=== PATIENT | male | born 1995 | race Caucasian/White ===

== ENCOUNTER 2020-05-14 13:31 | Outpatient (REF) | payer MEDICAID, SELFPAY | END 2020-05-14 13:32 | disposition home or self-care (01) | LOC: HO.LAB 13:31 | PROVIDERS: Visit Provider Internal Medicine | DX: Z20.828 Contact with and (suspected) exposure to other viral communicable diseases (principal) | CPT/HCPCS: 36415; C9803; U0003 ==

== ENCOUNTER 2020-11-03 10:06 | Emergency (ER) | payer MEDICAID, SELFPAY ==
[2020-11-03 10:18] VITALS: BP 115/74; PULSE 85; RESP 12; TEMP 37; O2SAT 100; BMI 18.6
--- NOTE | 2020-11-03 12:12 | ED_ITS ---
HPI - General Adult General Chief complaint: General Medical Stated complaint: std Time Seen by Provider: 11/03/20 11:41 Source: patient Mode of arrival: ambulatory Limitations: no limitations History of Present Illness HPI narrative: 25 y/o male presenting with pain and burning with urination x2 days. He reports unprotected sex with a woman with unknown STI status and he is concerned about a STI. He has some mild bladder discomfort at times but no abdominal pain, nausea, vomiting, penile discharge or lesions. Urine is normal color and smell. MD complaint: dysuria Onset (ago): day(s) (2) Location: genitals Radiation: non-radiation Severity: mild Quality: burning Pain Consistency: intermittent Relieving factors: none Exacerbating factors: none Associated symptoms: denies other symptoms Treatments prior to arrival: none Related Data Previous Rx's Medication Instructions Recorded doxycycline monohydrate 100 mg PO BID #14 cap 11/03/20 Allergies Allergy/AdvReac Type Severity Reaction Status Date / Time No Known Allergies Allergy Unverified 01/24/20 16:53 Review of Systems Review of Systems: Constitutional: No Fever, No Chills ENT/Mouth: No sore throat Gastrointestinal: No Nausea, No Vomiting, No Diarrhea, No abdominal Pain Genitourinary: N+ Dysuria, No Urinary Frequency, No Hematuria, No penile discharge Musculoskeletal: No joint pain, No Myalgias Skin: No Skin Lesions, No rash Heme/Lymph: , No Lymphadenopathy PMFSH Past Medical History Attestation statement: The following information was validated with the patient. Social History Social History Advance Directives: Yes Advance Directives Information Provided: Yes Advance Directives on File: No Physical Exam Vital Signs: Vital Signs: Last Vital Signs Temp 98.6 F 11/03/20 10:18 Pulse 85 11/03/20 10:18 Resp 12 11/03/20 10:18 BP 115/74 11/03/20 10:18 Pulse Ox 100 11/03/20 10:18 Body Mass Index 18.6 Const: General: cooperative, healthy appearing, comfortable and no acute distress HENMT: Head: Yes normal to inspection Ears: hearing grossly normal bilaterally General nose exam: Normal external nose present Mouth: Normal oral and palatal mucosa present, oropharynx normal and moist mucous membranes Eyes: General: appearance normal, both eyes and all related structures Chest: Chest palpation & inspection: normal inspection of the chest Resp: Effort & Inspection: normal respiratory effort and able to speak in complete sentences GI: Inspection: Yes normal to inspection Palpation (GI): Soft to palpation, not firm and nontender Auscultation: normal bowel sounds : General: Yes bladder normal to palpation and Yes no CVA tenderness Male General Exam: Yes normal external exam, No inguinal lymphadenopathy and No Genital lesions present Penis: normal penis, circumcised, no swelling and No Genital lesions present Meatus: meatus normal and no meatla discharge Scrotum: scrotum normal and testes descended bilaterally Testes: Testes normal and epididymides normal Back/Spine/Pelvis: Back: no CVA tenderness Skin: General skin exam: no rashes or lesions noted Psych: Appearance: grossly normal Mental Status: mental status grossly normal Course Course Course Narrative: 25 y/o male presenting with dysuria x2 days in setting of possible STI. UA is negative for infection. Will empirically treat for CT/NG, patient agrees. Will also send doxycycline to pharmacy given new CDC guidelines. He was encouraged to f/u at the [facility] for additional testing if concerned. Stable for d/c home. Medical Decision Making Lab Data Labs: Lab Results 11/03/20 Range/Units 11:49 Urine Color STRAW Urine Appearance CLEAR Urine pH 7.0 (5.0-8.0) Ur Specific [place] <= 1.005 (1.005-1.025) Urine Protein NEG (NEG-TRACE) MG/DL Urine Glucose (UA) NEG (NEG) MG/DL Urine Ketones NEG (NEG) MG/DL Urine Blood NEG (NEG) Urine Nitrite NEG (NEG) Ur Leukocyte Esterase NEG (NEG) Critical Care Time Critical Care Time Critical Care Time: No Discharge Plan Discharge Clinical Impression: Dysuria Patient Disposition: Home, Self-Care Instructions: Chlamydia (ED), Gonorrhea (ED), Dysuria (ED) Additional Instructions: Your urine test is negative for urinary tract infection. You are being treated for possible STD's Gonorrhea & Chlamydia - we will call you if you are positive Take the prescribed antibiotic for 1 week to complete treatment. Stay out of the sun and use sunscreen while on this antibiotic. No sexual activity until you are off of antibiotics and all of your symptoms are resolved Follow up with your doctor as needed. Prescriptions: New doxycycline monohydrate 100 mg capsule 100 mg PO BID Qty: 14 RF: 0
[2020-11-03 12:19] LABS: Glucose Urine UA NEG (NEG); Leukocyte Esterase Urine NEG (NEG); Nitrite Urine NEG (NEG); Specific Gravity - Urine <= 1.005 (1.005-1.025); Urine Blood NEG (NEG); Urine Ketones NEG (NEG); Urine Protein NEG (NEG-TRACE)
[2020-11-03 12:23] LABS: Appearance Urine CLEAR; Color Urine STRAW
[2020-11-03] MEDS: Azithromycin 500 MG TABLET 1000 MG PO (12:38)
[2020-11-03] MEDS: cefTRIAXone sodium 500 MG, Lidocaine HCl 1 % MPF 1 ML IM (12:39)
[2020-11-03 13:58] LABS: CT PCR NOT DETECTED (Not Detect.); NG PCR NOT DETECTED (Not Detect.)
== END 2020-11-03 12:52 | disposition home or self-care (01) ==
PROVIDERS: Physician Assistant; Emergency Provider Emergency Medicine Emergency Medical Services
DX: R30.0 Dysuria (principal); Z20.2 Contact with and (suspected) exposure to infections with a predominantly sexual mode of transmission
CPT/HCPCS: 81003; 87491; 87591; 96372; 99283; 99284; J0696

== ENCOUNTER 2021-03-31 15:18 | Emergency (ER) | payer MEDICAID, SELFPAY ==
--- NOTE | ~2021-03-31 | CT_ITS ---
EXAMINATION: CT HEAD WITHOUT CONTRAST CLINICAL INFORMATION: Headaches COMPARISON: CT of the head 03/18/2017 TECHNIQUE: Contiguous axial imaging was performed from the skull base to vertex without intravenous administration of contrast. This CT examination was performed using dose optimization techniques as appropriate, variously including the following: *Automated exposure control *Adjustment of mA and/or kV according to patient size (this includes techniques or standardized protocols for targeted exams where dose is matched to indication/reason for exam; i.e. extremities or head) *Use of iterative reconstruction technique DLP: 634 mGy-cm FINDINGS: There is no evidence of acute intracranial hemorrhage or territorial infarction. No abnormal mass effect or midline shift is seen. Cline to white matter differentiation is well preserved. No extra-axial fluid collections are identified. The ventricles are normal in size. There is no abnormal attenuation within the brain parenchyma. The osseous structures and soft tissues are normal. The mastoid air cells and visualized portions of the paranasal sinuses are well aerated. CT/CT head/brain wo con IMPRESSION: No acute intracranial pathology.
[2021-03-31 16:33] VITALS: BP 144/88; PULSE 69; RESP 18; TEMP 36.9; O2SAT 100; BMI 18.4
--- NOTE | 2021-03-31 16:33 | ED_ITS ---
HPI - Seizure General Chief Complaint: Seizure Stated Complaint: seizure 2 wks..head is feeling funny Time Seen by Provider: 03/31/21 16:32 Source: patient Mode of arrival: ambulatory Limitations: no limitations History of Present Illness complaint: possible seizure Onset (ago): week(s) (2) Description of Episode: loss of consciousness and tonic-clonic movement -: second(s) Witnessed: Yes - by Bystander Trauma: No Seizure History: Yes (possible) Place: Home Possible Precipitating Event: other (massage) Associated symptoms: other (?increased stress and lack of sleep ) Treatments prior to arrival: none Related Data Previous Rx's Medication Instructions Recorded doxycycline monohydrate 100 mg 100 mg PO BID #14 cap 11/03/20 capsule Allergies Allergy/AdvReac Type Severity Reaction Status Date / Time No Known Allergies Allergy Verified 03/31/21 16:32 Review of Systems Review of Systems: Constitutional : No Fever, No Chills, No Fatigue ENT/Mouth : No sore throat, No Rhinorrhea Eyes: No Eye Pain, No Swelling, No Redness Cardiovascular : No Chest Pain, No SOB, No Dyspnea on Exertion Respiratory : No Cough, No Sputum Gastrointestinal : No Nausea, No Vomiting, No Diarrhea, No abdominal Pain Genitourinary : No Dysuria, No Urinary Frequency, No Hematuria, Musculoskeletal : No joint pain, No Myalgias, No Joint Swelling Skin : No Skin Lesions, No rash Neuro : No Weakness, No Numbness, No Dizziness, positive Headache, pos possible abnormal movements Psych : No Anxiety/Panic, No Depression Heme/Lymph: No Bruising, No Bleeding,No Lymphadenopathy Endocrine : No Polyuria, No Polydipsia All other systems reviewed and are negative [facility] Past Medical History Attestation statement: The following information was validated with the patient. Medical History (Updated 03/31/21 @ 17:56 by Jocelyn De Dios DO) No known health problems Seizures Social History Social History (Updated 03/31/21 @ 16:41 by Jocelyn De Dios DO) Patient Tobacco Use Status: Never used Tobacco Substance Use Type: Marijuana Physical Exam Vital Signs: Vital Signs: Last Vital Signs Temp 98.5 F 03/31/21 16:33 Pulse 69 03/31/21 16:33 Resp 18 03/31/21 16:33 BP 144/88 H 03/31/21 16:33 Pulse Ox 100 03/31/21 16:33 Body Mass Index 18.4 Appearance: Alert. Oriented X3. No acute distress. Eyes: Pupils equal, round and reactive to light. ENT: Pharynx normal. Neck: Normal inspection. Neck supple. CVS: Normal heart rate and rhythm. Pulses normal. Respiratory: No respiratory distress. Breath sounds normal. Abdomen: Soft and nontender. Skin: Skin warm and dry. Normal skin color. Normal skin turgor. Extremities: No lower extremity edema. No calf ttp Neuro: Oriented X 3. No motor deficit. No sensory deficit. 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 Does not have a neurologist. He c/o headache since his last episode 2 weeks ago. At this time will obtain CT head to r/o mass. He saw our Neurologist in the past if he has negative head CT will refer to Neurologist Discharge Plan Discharge Clinical Impression: Generalized seizure Patient Disposition: Home, Self-Care Instructions: Recurrent Seizures in Adults (ED) Additional Instructions: return to ED for any worsening symptoms or concerns Prescriptions: No Action doxycycline monohydrate 100 mg capsule 100 mg PO BID Qty: 14 RF: 0 Referrals: Orestes Thomas MD [Physician] - 1 week Gino uDff APRN [Advanced Practice Nurse] - 2 days (any provider available) Stand Alone Forms: Work/School Release
== END 2021-03-31 18:22 | disposition home or self-care (01) ==
PROVIDERS: Emergency Provider Emergency Medicine
DX: R56.9 Unspecified convulsions (principal); F12.90 Cannabis use, unspecified, uncomplicated; F19.90 Other psychoactive substance use, unspecified, uncomplicated; Z79.899 Other long term (current) drug therapy
CPT/HCPCS: 70450; 99282; 99283; 99284

== ENCOUNTER 2025-01-23 08:12 | Emergency (ER) | payer OTHER, SELFPAY ==
[2025-01-23 08:13] VITALS: BP 138/76; PULSE 51; RESP 16; TEMP 36.6; O2SAT 98; BMI 18.7
--- NOTE | 2025-01-23 08:26 | ED_ITS ---
HPI - Male Genitourinary General Chief complaint: Urogenital-Male Stated complaint: bladder issues Time Seen by Provider: 01/23/25 08:18 Source: patient Mode of arrival: ambulatory Limitations: no limitations History of Present Illness ED Provider: HPI Narrative: 29-year-old male, denies ongoing drug use, denies possible STI exposure, has not had sexual intercourse in 4 months, has had no penile drainage, feels like he does not empty flu when he urinates and feels penile discomfort, no rashes reported. And states has had protected intercourse otherwise. Had a scare for potential STI approximately 4 years ago. Related Data Previous Rx's ?Medication ?Instructions ?Recorded doxycycline monohydrate 100 mg 100 mg PO BID #14 caps 11/03/20 capsule phenazopyridine 200 mg tablet 200 mg PO TID 6 days #18 tabs 01/23/25 (Pyridium) Allergies Allergy/AdvReac Type Severity Reaction Status Date / Time No Known Allergies Allergy Verified 01/23/25 08:16 Review of Systems Constitutional: Constitutional: Reports as per [facility] Past Medical History Medical History (Updated 01/23/25 @ 09:47 by Olu Vazquez DO) Seizures No known health problems Social History Social History (Updated 03/31/21 @ 16:41 by Luz De Dios DO) Patient Tobacco Use Status: Never used Tobacco Substance Use Type: Marijuana Advance Directives: No Advance Directives Information Provided: Yes Physical Exam Vital Signs: Vital Signs: Last Vital Signs Temp 97.8 F 01/23/25 08:13 Pulse 51 01/23/25 08:13 Resp 16 01/23/25 08:13 BP 138/76 01/23/25 08:13 Pulse Ox 98 01/23/25 08:13 O2 Del Method Room Air 01/23/25 08:13 BMI result Body Mass Index 18.7 Const: Other: Alert and oriented x4 exam; normal penis external, meatus without any bleeding, drainage, there were no rashes, testicles nontender, no masses palpated, no inguinal hernias Medical Decision Making Medical Decision Making [facility] Narrative: Screen patient for potential STI, he denies risks and states has not had any penile discharge, reassuring physical examination, we will check urinalysis to evaluate for UTI, and send of UA for GC/C Differential Diagnosis Differential Diagnoses: The differential diagnosis associated with the presentation includes (Prostatitis, STI, UTI, hernias, rashes) Lab Data Labs: Lab Results 01/23/25 Range/Units 09:19 Urine Color Yellow Urine Appearance Clear Urine pH 7.5 (5.0-9.0) Ur Specific [place] <= 1.005 (1.005-1.025) Urine Protein Negative (Neg-Trace) mg/dL Urine Glucose (UA) Negative (Negative) mg/dL Urine Ketones Negative (Negative) mg/dL Urine Blood Negative (Negative) Urine Nitrite Negative (Negative) Ur Leukocyte Esterase Negative (Negative) Discharge Plan Discharge Clinical Impression: Dysuria Patient Disposition: Home, Self-Care Instructions: Dysuria (ED) Additional Instructions: Urine culture was sent to evaluate for any sexually transmitted diseases, urinalysis without infection, in the meantime start taking Pyridium for the discomfort of the bladder, you do need to have PCP involved in your care and if you need referral to Urology for evaluation that she would be done through PCP, Pyridium can make it urine turn orange Prescriptions: New phenazopyridine [Pyridium] 200 mg tablet 200 mg PO TID 6 Days Qty: 18 0RF No Action doxycycline monohydrate 100 mg capsule 100 mg PO BID Qty: 14 0RF Rx Instructions: supervising MD Leoncio Aiken Print Language: Czech
[2025-01-23 09:30] LABS: Appearance Urine Clear; Glucose Urine UA Negative (Negative); PH 7.5 (5.0-9.0); Specific Gravity - Urine <= 1.005 (1.005-1.025)
[2025-01-23 10:01] VITALS: BP 118/74; PULSE 55; RESP 16; TEMP 35.9; O2SAT 100
[2025-01-23 10:58] LABS: CT PCR Urine NOT DETECTED (Not Detect.); NG PCR Urine NOT DETECTED (Not Detect.)
== END 2025-01-23 10:14 | disposition home or self-care (01) ==
PROVIDERS: Emergency Provider Emergency Medicine
DX: R30.0 Dysuria (principal); Z20.2 Contact with and (suspected) exposure to infections with a predominantly sexual mode of transmission
CPT/HCPCS: 81003; 87491; 87591; 99283